=== PATIENT | female | born 1975 | race Caucasian/White ===

== ENCOUNTER 2016-06-08 00:29 | Emergency (ER) | payer BC, OTHER ==
[~2016-06-08 00:29] MED LIST: ABILIFY2 MG PO; DESYREL50 MG PO; IMITREX PO; LORTAB 101 TAB 10/5 DOB; MULTIPLE VITAMI1 T11 PO; PHENERGAN25 MG PO; PROZAC40 MG PO; ZOLOFT PO
== END 2016-06-08 02:00 | disposition home or self-care (01) ==
LOC: CED 00:29
DX: T40.1X1A Poisoning by heroin, accidental (unintentional), initial encounter (principal); F17.200 Nicotine dependence, unspecified, uncomplicated; Z98.51 Tubal ligation status; Z98.890 Other specified postprocedural states; Z79.899 Other long term (current) drug therapy
CPT/HCPCS: 96374; 99283; 99284; J2405